=== PATIENT | male | born 1975 | race Hispanic/Latino ===

== ENCOUNTER 2017-07-10 05:27 | Emergency (ER) | payer OTHER ==
[2017-07-10 05:49] VITALS: RESP 16; TEMP 97.6; O2SAT 100
[2017-07-10 06:13] LABS: BASO # 0.1 K/uL (0.0-0.2); BASO % 1.2 % (0.0-2.0); EOS # 0.3 K/uL (0.0-0.7); EOS % 5.7 % (0.0-4.0); HEMOGLOBIN 13.9 g/dL (12.0-18.0); LYMPH # 1.6 K/uL (1.0-4.3); LYMPH % 32.5 % (20.0-40.0); MEAN CELL VOLUME 87.4 fl (80.0-94.0); MEAN CORPUSCULAR HEMOGLOBIN 30.3 pg (27.0-31.0); MEAN CORPUSCULAR HGB CONC 34.6 g/dL (33.0-37.0); MEAN PLATELET VOLUME 8.2 fl (7.2-11.7); MONO # 0.5 K/uL (0.0-0.8); MONO % 10.9 % (0.0-10.0); NEUT # 2.5 K/uL (1.8-7.0); NEUT % 49.7 % (50.0-75.0); NRBC % 0.1 % (0.0-0.0); RBC 4.59 Mil/uL (4.40-5.90); RED CELL DISTRIBUTION WIDTH 12.7 % (11.5-14.5)
--- NOTE | 2017-07-10 06:19 | ED PDOC ---
HPI: Chest Pain Time Seen by Provider: 07/10/17 05:35 Chief Complaint (Nursing): Chest Pain Chief Complaint (Provider): Epigastric Pain History Per: Patient History/Exam Limitations: no limitations Onset/Duration Of Symptoms: Days (x1) Current Symptoms Are (Timing): Still Present Additional Complaint(s): Osman Reyna is a 42 year old male, with a past medical history of anxiety and gastritis, who presents to the ED complaining of epigastric pain x1 day. Patient states the pain started at 11pm last night and has since been coming and going. Patient describes the pain as a moderate burning pain in his mid- epigastric region. Denies fever, shortness of breath, vomiting, and diarrhea. Reports taking Zantac at home without relief. Also reports his last drink was New Years Jina. PMD: PAULA Past Medical History Reviewed: Historical Data, Nursing Documentation, Vital Signs Vital Signs: Last Vital Signs Temp 97.6 F 07/10/17 05:44 Pulse 60 07/10/17 08:07 Resp 16 07/10/17 08:07 BP 117/80 07/10/17 08:07 Pulse Ox 100 07/10/17 08:07 - Medical History PMH: Anxiety, Gastritis, Pericarditis - Surgical History Surgical History: No Surg Hx - Family History Family History: States: Unknown Family Hx - Social History Alcohol: Occasional (Patient reports drinking once a week, but admits to drinking more than usual due to holidays.) - Home Medications Home Medications: Ambulatory Orders Medication Instructions Recorded Omeprazole 40 mg PO DAILY #30 capsule. 07/10/17 - Allergies Allergies/Adverse Reactions: Allergies Allergy/AdvReac Type Severity Reaction Status Date / Time Sulfa (Sulfonamide Allergy RASH Verified 07/10/17 05:44 Antibiotics) Review of Systems ROS Statement: Except As Marked, All Systems Reviewed And Found Negative Constitutional: Negative for: Fever Respiratory: Negative for: Shortness of Breath Gastrointestinal: Positive for: Abdominal Pain (mid-epigastric "moderate" burning pain). Negative for: Vomiting, Diarrhea Physical Exam - Reviewed Nursing Documentation Reviewed: Yes Vital Signs Reviewed: Yes - Physical Exam Appears: Positive for: Well, Non-toxic, No Acute Distress Head Exam: Positive for: ATRAUMATIC, NORMAL INSPECTION, NORMOCEPHALIC Skin: Positive for: Normal Color, Warm, Dry. Negative for: Rash Eye Exam: Positive for: EOMI, Normal appearance, PERRL Neck: Positive for: Normal, Painless ROM, Supple Cardiovascular/Chest: Positive for: Regular Rate, Rhythm. Negative for: Murmur Respiratory: Positive for: Normal Breath Sounds. Negative for: Respiratory Distress Gastrointestinal/Abdominal: Positive for: Normal Exam, Bowel Sounds, Soft. Negative for: Tenderness Back: Positive for: Normal Inspection. Negative for: L CVA Tenderness, R CVA Tenderness, Vertebral Tenderness Extremity: Positive for: Normal ROM. Negative for: Pedal Edema, Deformity Neurologic/Psych: Positive for: Alert, Oriented (x3). Negative for: Motor/ Sensory Deficits - Laboratory Results Result Diagrams: 07/10/17 06:00 07/10/17 06:00 - ECG O2 Sat by Pulse Oximetry: 100 (RA) Pulse Ox Interpretation: Normal Medical Decision Making Medical Decision Making: Time: 05:51 Plan: --Alcohol serum --CMP --Lipase --CBC w/ differential --Pepcid 20 mg IVP --Reevaluation Time: 6:40 --EKG shows NSR at 60 bpm. --All labs normal. Time: 07:00 --Patient is signed over to Dr. Oates pending reevaluation. Scribe Attestation: Documented by Maximo Hall acting as a scribe for Fausto Pelaez MD. Scribe Attestation: All medical record entries made by the Scribe were at my direction and personally dictated by me. I have reviewed the chart and agree that the record accurately reflects my personal performance of the history, physical exam, medical decision making, and the department course for this patient. I have also personally directed, reviewed, and agree with the discharge instructions and disposition. Disposition - Clinical Impression Clinical Impression: Gastritis - Patient ED Disposition Is Patient to be Admitted: Transfer of Care - Disposition Referrals: [facility] [Outside] Disposition: Transfer of Care Disposition Time: 07:00 Condition: FAIR Prescriptions: Omeprazole 40 mg PO DAILY #30 capsule. Instructions: Gastritis (ED) Forms: [employer] (Greek) Patient Signed Over To: Carlos A Oates Handoff Comments: pending reeval
[2017-07-10 06:30] LABS: ALB/GLOB RATIO 1.1 (1.0-2.1); ALBUMIN 3.8 g/dL (3.5-5.0); ALT/SGPT 55 U/L (21-72); AST/SGOT 33 U/L (17-59); BLOOD UREA NITROGEN 23 mg/dl (9-20); CALCIUM 9.3 mg/dL (8.4-10.2); GFR AFRICAN-AMERICAN > 60; GFR NON-AFRICAN AMERICAN > 60; LIPASE 53 U/L (23-300)
[2017-07-10 06:31] VITALS: PULSE 60
--- NOTE | 2017-07-10 08:01 | ED PDOC ---
- Laboratory Results Result Diagrams: 07/10/17 06:00 07/10/17 06:00 - ECG O2 Sat by Pulse Oximetry: 100 - Progress Re-evaluation Time: 07:59 Condition: Improved Disposition - Clinical Impression Clinical Impression: Gastritis - POA Present On Arrival: None - Disposition Referrals: [facility] [Outside] Disposition: Routine/Home Disposition Time: 08:00 Condition: FAIR Prescriptions: Omeprazole 40 mg PO DAILY #30 capsule. Instructions: Gastritis (ED) Forms: [employer] (German)
[2017-07-10 08:08] VITALS: BP 117/80
--- NOTE | 2017-07-11 11:00 | CARD ---
APPROVED REPORT EKG Measurement Heart [id number] <Conclusion> Normal sinus rhythm Normal ECG
== END 2017-07-10 08:09 | disposition home or self-care (01) ==
LOC: H.ER 05:27
DX: K29.70 Gastritis, unspecified, without bleeding (principal)